=== PATIENT | female | born 1985 | race American Indian/Alaskan Native ===

== ENCOUNTER 2021-03-27 22:00 | Emergency (ER) | payer MEDICAID ==
[2021-03-28 06:01] VITALS: BP 146/61
--- NOTE | 2021-03-28 06:37 | Emergency Department Report ---
ED Medical Clearance HPI - General Chief complaint: Medical Clearance Stated complaint: CASE MANAGMENT Time Seen by Provider: 03/28/21 06:24 Source: patient, EMS Mode of arrival: Wheelchair - History of Present Illness Initial comments: Chief complaint: Needs transportation HPI: This is a 35-year-old female with history of end-stage renal disease on hemodialysis, insulin-dependent diabetes mellitus, bilateral below the knee amputation, blindness, hypertension who presents to the ER after being discharged from the hospital service. Patient was discharged around address. Consequently transportation service brought her back to the emergency department. Patient provided our nursing staff family contact information and alternate address. Patient is comfortable. She denies any pain. She does not have any needs at this time other than transportation home. MD Complaint: medical clearance request, other (Transportation home) Reason for Medical Clearance: other (Patient needs transportation home) Home medications: Home Medications Medication Instructions Recorded Confirmed Last Taken Apixaban [Eliquis] 2.5 mg PO BID 03/25/21 03/25/21 03/24/21 AtorvaSTATin 5 mg PO QHS 03/25/21 03/25/21 03/24/21 Cyanocobalamin [Vitamin B-12] 1,000 mcg PO DAILY 03/25/21 03/25/21 03/24/21 Hydralazine HCl 50 mg PO TID 03/25/21 03/25/21 03/24/21 Labetalol HCl [Labetalol 300mg TAB] 300 mg PO BID 03/25/21 03/25/21 03/24/21 Sevelamer Carbonate [Renvela] 1,600 mg PO TIDWM 03/25/21 03/25/21 03/24/21 amLODIPine 5 mg PO DAILY 03/25/21 03/25/21 03/24/21 calcitrioL [Rocaltrol] 0.25 mcg PO QDAY 03/25/21 03/25/21 03/24/21 carvediloL [Coreg] 12.5 mg PO BID 03/25/21 03/25/21 03/24/21 diphenhydrAMINE [Benadryl CAP] 25 mg PO QHS 03/25/21 03/25/21 03/24/21 Allergies/Adverse reactions: Allergies Allergy/AdvReac Type Severity Reaction Status Date / Time acetaminophen [From Percocet] Allergy itching, Verified 03/28/21 06:00 sweating, hives aspirin Allergy Unknown Verified 03/28/21 06:00 heparin Allergy Bleeding Verified 03/28/21 06:00 hydrocodone Allergy Hives Verified 03/28/21 06:00 ketorolac [From Toradol] Allergy Hives, Verified 03/28/21 06:00 numb feeling oxycodone [From Percocet] Allergy Hives, Verified 03/28/21 06:00 numb feeling tramadol Allergy Hives, Verified 03/28/21 06:00 numb feeling trazodone Allergy Hives, Verified 03/28/21 06:00 sweating ED Review of Systems ROS: Stated complaint: CASE MANAGMENT Other details as noted in HPI Respiratory: denies: cough, shortness of breath Cardiovascular: denies: chest pain Gastrointestinal: denies: abdominal pain ED Past Medical Hx - Past Medical History Previous Medical History?: Yes Hx Hypertension: Yes Hx Diabetes: Yes Hx GERD: Yes Hx Renal Disease: Yes (ESRD HD T,TH,Sat.) Hx Psychiatric Treatment: Yes (Depression) Additional medical history: Ascites, Anemia, Bilateral BKA, Hyperkalemia, Hyperlipidemia, Hypoalbuminemia, Impaired glucose regulation, Multidrug resistant organism, Nonalcoholic steatohepatitis, Preseptal cellulitis, PVD, Secondary Parathyroidism, Sleep apnea, Patient is blind - Surgical History Additional Surgical History: AV Fistula - Social History Smoking Status: Never Smoker - Medications Home Medications: Home Medications Medication Instructions Recorded Confirmed Last Taken Type Apixaban [Eliquis] 2.5 mg PO BID 03/25/21 03/25/21 03/24/21 History AtorvaSTATin 5 mg PO QHS 03/25/21 03/25/21 03/24/21 History Cyanocobalamin [Vitamin B-12] 1,000 mcg PO DAILY 03/25/21 03/25/21 03/24/21 History Hydralazine HCl 50 mg PO TID 03/25/21 03/25/21 03/24/21 History Labetalol HCl [Labetalol 300mg TAB] 300 mg PO BID 03/25/21 03/25/21 03/24/21 History Sevelamer Carbonate [Renvela] 1,600 mg PO TIDWM 03/25/21 03/25/21 03/24/21 History amLODIPine 5 mg PO DAILY 1203/25/21 03/24/21 History calcitrioL [Rocaltrol] 0.25 mcg PO QDAY 03/25/21 03/25/21 03/24/21 History carvediloL [Coreg] 12.5 mg PO BID 03/25/21 03/25/21 03/24/21 History diphenhydrAMINE [Benadryl CAP] 25 mg PO QHS 03/25/21 03/25/21 03/24/21 History ED Physical Exam - General Limitations: No Limitations General appearance: alert, in no apparent distress - Respiratory Respiratory exam: Absent: respiratory distress - Neurological Exam Neurological exam: Present: alert, oriented X3 - Psychiatric Psychiatric exam: Present: normal affect, normal mood - Skin Skin exam: Present: warm, dry, intact, normal color ED Course Vital Signs 03/28/21 06:00 Temperature 98.2 F Pulse Rate 80 Respiratory 18 Rate Blood Pressure 146/61 [Left] O2 Sat by Pulse 96 Oximetry ED Medical Decision Making - Medical Decision Making Mrs. Mariscal recently discharged from the hospital. She was transported to the wrong address. She provided nurse family contact information and alternate address. If unable to contact family, will obtain case management consultation. Case cash management associate assisted with disposition. He contacted family members and in order to coordinate outpatient residence. Patient has repeatedly denied [facility] facility care. She is discharged to the care of her family. Medical transportation has been arranged by case management. ED Disposition Clinical Impression: Encounter for medical clearance for patient hold, Assistance with transportation Disposition: HOME / SELF CARE / HOMELESS Is pt being admited?: No Does the pt Need Aspirin: No Condition: Stable
[2021-03-28] MEDS ORDERED: ACETAMINOPHEN 500 MG TAB PO ONE (09:50)
== END 2021-03-28 16:00 | disposition home or self-care (01) ==
LOC: ED 22:00
DX: Z02.89 Encounter for other administrative examinations (principal); I12.0 Hypertensive chronic kidney disease with stage 5 chronic kidney disease or end stage renal disease; E11.22 Type 2 diabetes mellitus with diabetic chronic kidney disease; N18.6 End stage renal disease; K21.9 Gastro-esophageal reflux disease without esophagitis; Z99.2 Dependence on renal dialysis; Z88.6 Allergy status to analgesic agent; Z88.5 Allergy status to narcotic agent; Z88.8 Allergy status to other drugs, medicaments and biological substances; Z79.01 Long term (current) use of anticoagulants; Z79.899 Other long term (current) drug therapy
CPT/HCPCS: 99283